=== PATIENT | female | born 1975 ===

== ENCOUNTER 2024-05-09 13:01 | Inpatient (IN) | payer OTHER, SELFPAY ==
[2024-05-09] VITALS (18 sets, daily range): BP systolic 143–183; BP diastolic 86–117; BMI 44.2
--- NOTE | 2024-05-09 08:42 | ED.GENMED ---
History of Present Illness
General
Chief Complaint: Chest Pain
Source: patient
Exam Limitations: none
Time Seen by Provider: 05/09/24 08:30
History of Present Illness
History of Present Illness:
See MDM
Past History
Past History
ED Past Medical History: Asthma, HTN and IDDM
ED Past Surgical History: None
Social History
Tobacco: Non-smoker
Alcohol: None
Phy Exam
Physical Exam
Physical Exam:
See MDM
Scores
Heart Score for Chest Pain Patients
STEMI patient?: No
History: Highly Suspicious
ECG: Nonspecific Repolarization
Age: >45 - <65 years
Risk Factors: 1 or 2 Risk Factors
Troponin: </= Normal Limit
Heart Score for Chest Pain Patients: 5
Heart Score Risk: 20.3% MACE over next 6 weeks
Course
Orders/Labs/Results
Orders:
Orders
05/09/24 08:27
Electrocardiogram (*1) Urgent
Reason for Study: Chest Pain
EKG- Treatment ONCE
Test Result ONCE
05/09/24 08:41
Nitroglycerin Sublingual [Nitrostat (Sublingual)] 0.4 mg SL [id number] PRN
05/09/24 08:42
EKG- Treatment ONCE
CR Chest - 2 Views Urgent
Comment:
Reason For Exam: chest pain
05/09/24 09:15
Complete Blood Count/No Diff Urgent
Troponin I Urgent
Venous Blood Gas Urgent
%Oxygen/Room Air: room
05/09/24 09:46
B-Hydroxybutyrate Urgent
Basic Metabolic Panel Urgent
Lipase Urgent
05/09/24 09:48
Add On- LAB Urgent
Comments:: lab called- spoke with Brandy in CHEM
Tests Added?: troponin
05/09/24 10:18
Urinalysis Reflex To Culture Urgent
Date Specimen was Collected: 05/09/24
Time Specimen was Collected: 10:14
05/09/24 10:40
Potassium Urgent
05/09/24 10:48
Consult Cardiology [CARDIOLOGY CONSULT] Routine
Consulting Provider: Sarkis Villaseñor
Was physician already notified: Yes
Abnormal Lab Results
05/09/24 05/09/24
09:15 09:46
MCV 77.6 L fL
(81.0-99.0)
MCH 25.4 L pg
(27.0-31.0)
MCHC 32.7 L g/dL
(33.0-37.0)
MPV 11.1 H fL
(7.4-10.4)
VBG pO2 165 H mmHg
(30-50)
BUN 18 H mg/dl
(7-17)
Glucose 476 H* mg/dl
(70-99)
B-Hydroxybutyrate 0.54 H mmol/L
(0.02-0.27)
05/09/24 09:15
Vital Signs
Initial and Last Documented VS:
Initial Vital Signs
Pulse Resp
104 20
05/09/24 08:31 05/09/24 08:31
Last Documented Vital Signs
Pulse Resp BP
96 23 143/94
05/09/24 10:15 05/09/24 10:15 05/09/24 10:23
MDM/Problems Addressed
Differential Diagnosis Includes:
HPI and MDM Narrative:
49-year-old female presenting with chest pain since last night. Patient was in bed and noted left-sided chest pain rating down left arm. Patient got worried because symptoms have significantly worsened with any sort of exertion. Patient was given
nitroglycerin by EMS and symptoms have improved somewhat. Patient has a prescription of nitroglycerin herself. When questioned why, patient states she had a cardiac catheterization 4 years ago. She was prescribed the medicine after the
catheterization but did not require a stent. Patient states he has a clotting disorder and is currently on Eliquis. Patient also found to have elevated blood sugar by EMS which is abnormal per patient. She is chronically on steroids due to her
asthma. She is currently on antibiotics to treat strep throat as well.
Given the exertional chest pain and shortness of breath, will obtain troponin discussed case with cardiology. Will obtain chest x-ray. Given compliance with Eliquis, will not pursue PE route
Given the uncontrolled diabetes, will rule out DKA. Will give IV fluids for expected polydipsia
Physical exam
General: Mildly uncomfortable
HEENT: protecting airway
Neck: appears supple
CV: No evidence of cyanosis. Regular rate and rhythm
Resp: No accessory muscle use. Lungs clear
Abd: Non-distended
Extremities: No deformities. No unilateral leg edema or erythema
Neuro: alert
Psych: Normal affect
Skin: Intact
Problems Addressed including Acute and Chronic Conditions affecting care:
1. Exertional chest pain and shortness of breath
Acuity: acute
Prognosis: unstable
Details: Will obtain troponin, EKG and chest x-ray.
2. Hyperglycemia
Acuity: acute
Prognosis: unstable
Details: Will rule out DKA.
3. Dehydration
Acuity: acute
Prognosis: stable
Details: Likely in setting of hyperglycemia causing polyuria. Will give IV fluids
Updates
Troponin negative. Given duration of symptoms, ACS is less likely. Given her ongoing symptoms appear to be improved with nitroglycerin, will admit with cardiology consult. Cardiology made aware. VBG showing no evidence of DKA. Blood work keeps
hemolyzing. This was relayed to hospitalist so that she does not get insulin before potassium
Differential Diagnosis (but not limited to): Acute coronary syndrome, DKA, pneumonia
Testing considered: D-dimer but patient is anticoagulated
Drug therapy (if applicable): OTC meds, please see d/c instruction regarding Rx drugs
Amount and/or Complexity of Data Reviewed
Clinical info obtained from: Patient
External data reviewed: N/A
Labs I independently reviewed (but not limited to): trop normal, hyperglycemia
Radiology: X-ray independently reviewed: Chest x-ray clear
Pulse Ox: not hypoxic
EKG independently reviewed: Sinus rhythm, right axis, no STEMI
Desk Clerk: Sinus rhythm
Critical Care: N/A
Risk of Complication:
Social Determinants of health: Good social support
Discussed with other providers: Hospitalist, cardiology
Escalation of Care includes Admit/Obs: Given exertional dyspnea and uncontrolled diabetes, will admit
Occasional wrong word or 'sound a like' substitutions may have occurred due to the inherent limitations of voice recognition software. Read the chart carefully and recognize, using context, where substitutions have occurred.
*Critical Care Note
Total Time (30-74mins, 75-104mins- exclusive of procedures): Not Applicable
ED Attending Note
-
Portions of this chart may have been created with voice recognition software.� Occasional wrong word or��sound alike� substitutions may have occurred due to the inherent limitations of voice recognition software.
Discharge Plan
Departure
Patient Disposition: Admit
Date of Disposition: 05/09/24
Time of Disposition: 10:52
Admit to: Telemetry
Presentation/result/management discussed w/ accepting MD/DO: Hospitalist
Discharge Problem:
Exertional dyspnea, Hyperglycemia
Prescriptions:
No Action
amoxicillin 250 mg/5 mL suspension for reconstitution
Referrals:
UNKNOWN - PT DOES,NOT KNOW [Family Provider] -
Interventions
Interventions:
*Risk Screen - Suicide Last Done: 05/09/24 08:29
*Neglect/Abuse Screening Last Done: 05/09/24 08:29
ED- Fall Risk Assessment Last Done: 05/09/24 09:22
*ED COVID-19 Vaccine History Last Done: 05/09/24 08:29
ED- Cardiac Assessment Last Done: 05/09/24 09:22
Discharge Date and Time
Print Language: PAKISTANI
[2024-05-09 09:24] LABS: Venous Blood Gas HCO3 24.3 mmol/L (22-27); Venous Blood Gas pCO2 42 mmHg (35-48); Venous Blood Gas pH 7.37 (7.32-7.43); Venous Blood Gas pO2 165 mmHg (30-50)
[2024-05-09 09:26] LABS: Venous Blood Gas O2 Therapy ROOM AIR
[2024-05-09 09:30] LABS: Hemoglobin 12.1 g/dL (12.0-16.0); Mean Corp Hgb Conc. 32.7 g/dL (33.0-37.0); Mean Corpuscular Hgb 25.4 pg (27.0-31.0); Mean Corpuscular Volume 77.6 fL (81.0-99.0); Mean Platelet Volume 11.1 fL (7.4-10.4); Platelet Count 270 10^3/uL (130-400); Red Blood Cell Count 4.77 10^6/uL (4.20-5.40); Red Cell Dist. Width 14.4 % (11.5-14.5); White Blood Cell Count 9.5 10^3/uL (4.8-10.8)
[2024-05-09 10:17] LABS: Troponin I < 0.012 ng/ml
[2024-05-09 10:23] LABS: Blood Urea Nitrogen 18 mg/dl (7-17); Calcium 9.7 mg/dl (8.4-10.2); Carbon Dioxide 25 mmol/L (22-30); Chloride 100 mmol/L (98-107); Glucose 476 mg/dl (70-99); Lipase 87 U/L (23-300); Sodium 135 mmol/L (135-145); eGFR > 60.00
[2024-05-09] MEDS: NITROSTAT (SUBLINGUAL) 0.4 MG SL ×3 (10:23→20:41)
[2024-05-09 10:26] LABS: B-Hydroxybutyrate 0.54 mmol/L (0.02-0.27)
[2024-05-09 10:43] LABS: Urine Albumin Negative (Neg - Trace); Urine Bilirubin Negative (Negative); Urine Character Clear (Clear); Urine Color Yellow; Urine Glucose 3+ (Negative); Urine Ketone Negative (Negative); Urine Leukocyte Negative (Negative); Urine Nitrite Negative (Negative); Urine Occult Blood Trace (Negative); Urine Urobilinogen Negative (Neg - 1+)
--- NOTE | 2024-05-09 11:05 | PHANOTE ---
med rec note- tried to verify patient narc at a [place] pharmacy, patient has med list from s different hospital having Roxicodone 10mg but called pharmacy at [phone] but pharmacy has not records of narc, no pdmp reocrds of narc and no ecw
records
[2024-05-09 11:12] LABS: Potassium 4.3 mmol/L (3.5-5.1)
--- NOTE | 2024-05-09 11:37 | HPS.HSE ---
Family Physician
-
Family Physician: NOT KNOW UNKNOWN - PT DOES
Chief Complaint
-
Chest pain, palpitations
History of Present Illness
49-year-old female here complaining of chest pain since yesterday. Worse on exertion. Characterized by heaviness with associated palpitations and shortness of breath. Radiation down the right arm.
Chest pain improved with nitroglycerin in the emergency room.
Reportedly had a cardiac catheterization 4 years ago at [facility] in [place], did not require stenting. Denies history of stents.
Relocated to this area 1 year ago from [place]. Most of her physicians are located in [place].
Medical History
Past Medical History
Past Medical History: Reports Other
Additional Past Medical History:
Neuromyelitis optica
Atrial fibrillation
Essential hypertension
DM2
History of DVT/PE
COPD
MCKENZIE
Asthma
Peripheral neuropathy
Past Surgical History: Reports Appendectomy and Other
Additional Past Surgical History:
Left oophorectomy/fallopian tube resection
Gastric sleeve -2020
Cholecystostomy tube
Social History
Tobacco: Non-smoker
Alcohol: None
Drug: None
Personal:
Living: With Family
Family History
Family History: Not pertinent
Allergies / Home Medications
Allergies reflects when Allergies were last updated in [facility] [employer] [facility].
Home Medications with original date entered in [employer]
Allergy/Medication List:
Allergies
Allergy/AdvReac Type Severity Reaction Status Date / Time
food Allergy Pharmacy Uncoded 05/09/24 08:29
to Review
plasma Allergy Pharmacy Uncoded 05/09/24 08:29
to Review
Home Medications
albuterol sulfate 2.5 mg/3 mL (0.083 %) solution for nebulization 2.5 mg inhalation R Q4HPRN PRN sob 05/09/24
apixaban 5 mg tablet (Eliquis) 5 mg PO BID 05/09/24
baclofen 10 mg tablet 10 mg PO BID 05/09/24
budesonide-formoterol HFA 160 mcg-4.5 mcg/actuation aerosol inhaler (Symbicort) 2 inh inhalation R BID 05/09/24
cholecalciferol (vitamin D3) 25 mcg (1,000 unit) tablet (Vitamin D3) 25 mcg PO DAILY 05/09/24
diphenhydramine HCl 50 mg capsule 50 mg PO HSPRN PRN sleep 05/09/24
ferrous sulfate 325 mg (65 mg iron) tablet 325 mg PO DAILY 05/09/24
gabapentin 300 mg capsule 900 mg PO TID 05/09/24
hydrochlorothiazide 12.5 mg tablet 12.5 mg PO DAILY 05/09/24
insulin glargine 100 unit/mL subcutaneous solution 30 unit SC HS 05/09/24
insulin lispro 100 unit/mL subcutaneous pen 8 sliding scale dose SC AC 05/09/24
ipratropium bromide 0.02 % solution for inhalation 0.5 mg inhalation R BID 05/09/24
ondansetron 8 mg disintegrating tablet 8 mg PO [id number] PRN nausea 05/09/24
pantoprazole 40 mg tablet,delayed release (Protonix) 40 mg PO DAILY 05/09/24
peg 400-propylene glycol (PF) 0.4 %-0.3 % eye drops in a dropperette (Systane (PF)) 1 drp BOTH EYES BID 05/09/24
prednisone 20 mg tablet 40 mg PO DAILY 05/09/24
satralizumab-mwge 120 mg/mL subcutaneous syringe (Enspryng) 120 mg SC Q4W 05/09/24
Review of Systems
-
History Source: Patient
A 12 point ROS was completed and negative except as noted: Yes
Physical Exam
Vital Signs
Vital Signs
Pulse Resp BP
96 23 143/94
05/09/24 10:15 05/09/24 10:15 05/09/24 10:23
Physical Exam
General: Well Developed, Well Nourished, No Apparent Distress, Comfortable and Morbidly Obese
HEENT: NormoCephalic, Anicteric and Moist mucous membranes
Respiratory: Clear
Cardiac: S1/S2 and Regular Rhythm
GI: Soft, Non Tender and Non Distended
Genito-urinary: Deferred by me
Musculoskeletal: No Clubbing, No Cyanosis and No Edema
Skin: Warm and Dry
Neuro: AO x 3
Hematologic/Lymphatic: No Lymphadenopathy
Psych: Calm
Laboratory Results
-
05/09/24 09:15
05/09/24 10:49
Laboratory Results
Total Bilirubin Cancelled 05/09/24 09:46
AST Cancelled 05/09/24 09:46
ALT Cancelled 05/09/24 09:46
Alkaline Phosphatase Cancelled 05/09/24 09:46
Troponin I < 0.012 ng/ml 05/09/24 09:15
Troponin I Cancelled 05/09/24 09:15
Lipase 87 U/L (23-300) 05/09/24 09:46
Impression/Plan
-
Chest pain -rule out ACS given risk factors. Admit to IVU, consult cardiology. Troponin negative so far. No significant EKG changes.
DM2 with hyperglycemia -no evidence of DKA. She admits that her last A1c was 11%. Steroid-induced hyperglycemia contributing. Resume Lantus, mealtime insulin. Normally on NovoLog 15 units AC, Lantus 30 units at bedtime at home.
Neuromyelitis optica -on monthly Enspryng injections subQ, next dose due 05/15/24. Her neurologist is located in [place].
She is on a slow prednisone taper, was on 20 mg daily for the past month. She requests to go down to 10 mg daily starting today. Prednisone is for both her asthma as well as NMO.
Atrial fibrillation -continue Eliquis.
Moderate persistent asthma/COPD without exacerbation -continue inhalers.
Essential hypertension
History of VTE -2016. IVC filter placed and still intact. Continue Eliquis.
MCKENZIE -resume CPAP at bedtime.
Morbid obesity due to excess calories
Full code
[2024-05-09 11:42] LABS: Urine Yeast Moderate (Negative)
[2024-05-09] MEDS: NOVOLIN R 11 UNITS IV (11:56)
[2024-05-09] MEDS: 0.45%NACL 1000 IV (11:58)
--- NOTE | 2024-05-09 12:20 | EDRN ---
Pharmacy TT to send AVNI pen insulin for administration
[2024-05-09 13:15] LABS: Glucose - Point of Care 234 mg/dl (70-99)
--- NOTE | 2024-05-09 13:16 | CON.CAR ---
Addendum entered and electronically signed by Sarkis Villaseñor MD 05/09/24 14:46:
49-year-old woman with complex past medical history, with neuromyelitis optica, diabetes, hypertension, hyperlipoidemia, PAF, pulmonary embolism with recent filter, gastric sleeve, obesity, obstructive sleep apnea, and asthma she has episodes of
tachycardia with sharp chest pain several times a week lasting up to an hour but last night had a prolonged episode and presented for evaluation. Currently feels better, had pain radiating to the left arm. 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 She has periods where she does not consistently take her medications. PMH: As above
PSH: Gastric sleeve, appendectomy, salpingo-oophorectomy
Allergies: None to medications
Outpatient meds: Reviewed SH: Non-smoker no alcohol
ROS negative except as above
160/117, 140s over 90s, pulse 100 respiratory rate 14, weight is 112.2 kg saturations of 100% on room air, head neck exam unremarkable lungs are clear, soft systolic murmur at base to apex JVD carotids okay abdomen obese extremities without
significant edema distal pulses palpable neuro grossly nonfocal
Hemoglobin 12.1, MCV 77.6, 7.36.65, 42, 24 (venous gas), BUN/creatinine: 18 and 0.6, troponin undetectable, proBNP pending, glucose is 476
EKG normal sinus rhythm, poor R wave progression, axis indeterminate
Assessment
Chest pain and tachycardia, suspected paroxysmal atrial fibrillation
Strep throat, abx course not yet completed
Fall 05/07/24
DM2, poorly controlled with hyperglycemia
HTN, poorly controlled
Neuromyelitis optica
reportedly with prolonged hospitalization for 4.5 years at [facility] at time of diagnosis, followed by 1 year in rehab
Peripheral neuropathy
HLD
PAF
PE s/p IVC filter
Chronic OAC with eliquis
Asthma
MCKENZIE
Obesity
History of gastric sleeve
History of appendectomy
History of L salpingo-oophorectomy
Cholecystostomy tube with plans for eventual cholecystectomy
Plan:
She presents with chest pain usually in the setting of tachycardia and what she suspects is atrial fibrillation. She is not on a beta-isabel. She is anticoagulated. She reports she has had a cardiac catheterization in the past, has not had an
echo for some period of time. She is not always consistent and taking medications and hemoglobin A1c has been very elevated.
Her negative troponin makes ACS unlikely. She has no acute EKG changes. Currently she is in sinus rhythm.
Will observe on telemetry. Check echo and trend troponin. Continue Eliquis for now.
Likely will begin beta-isabel therapy.
Based on clinical course we can decide on the need for an ischemic evaluation.
Original Note:
Consultation
Consultation Request
Date/Time Consultation Performed: 05/09/24
Requesting Provider: Dr. Carroll
Performing Provider: Belen Norman PA-C for Dr. HEENA Villaseñor
Reason for Consultation: CP, HTN
Medical History
-
Chief Complaint: CP
History of Present Illness:
Patient is a 49 yo F with all prior medical care through [facility] in [place], moved to this area ~ 1 year ago and still attempting to establish care. She reports a history of neuromyelitis optica with prolonged hospitalization of 4.5 years at [facility] at
time of diagnosis followed by 1 year in rehab. Previously on rituxan however transitioned to enspryng. She also has type 2 DM, HTN, HLD, PAF, PE s/p IVC filter, asthma, MCKENZIE, obesity, history of gastric sleeve. She reports she has gone to [place] [facility] in the past as is very close to her home, however cannot follow with cardiology there due to her insurance. She decided to come here today as she ideally would like to establish care here. She states that on 04/21 she was having L arm pain.
Went to [facility] and diagnosed with tendonitis. She reports then on 05/01 she was evaluated for CP and found to have strep throat. She tells me she fell two days ago, which is not uncommon in setting of her chronic ambulatory dysfunction as
she was temporarily paralyzed during her hospitalization for neuromyelitis optica. She reports she continues with dry cough, covid negative. Last evening around 9PM she was SOB with associated heart pounding and chest pain. She reports it felt
similar to how she felt prior to being diagnosed with PE. She took several SL nitro without significant improvement. She then noted the pain through to her back and down her R arm and called 911. She reports she previously had a cath ~6 years ago
prior to her gastric sleeve surgery which did not require intervention. She tells me she does have significant family history of CAD. On arrival blood sugar was 526. She states she does not always take her insulin, last hgbA1c 11%. She has been
trying some holistic methods including apple cider vinegar and garlic clove, and 'lots of herbs.' She also reports she sometimes does not take her eliquis, but then was told that 'is not good.' Trop negative x1.
PMH:
Neuromyelitis optica
reportedly with prolonged hospitalization for 4.5 years at [facility] at time of diagnosis, followed by 1 year in rehab
DM2
HTN
HLD
PAF
PE s/p IVC filter
Chronic OAC with eliquis
Asthma
MCKENZIE
Obesity
History of gastric sleeve
History of appendectomy
History of salpingo-oophorectomy
Past Medical History
Past Medical History: Other (in HPI)
Social History
Tobacco: Former Smoker (brief ~2 months, remote)
Alcohol: None
Personal:
Living: With Family
Employment: Disabled
Family History
Family History: CAD
Allergies / Home Medications
Allergy/AdvReac Type Severity Reaction Status Date / Time
food Allergy Pharmacy Uncoded 05/09/24 08:29
to Review
plasma Allergy Pharmacy Uncoded 05/09/24 08:29
to Review
�Medication �Instructions �Recorded �Confirmed �Type
albuterol sulfate 2.5 mg/3 mL 2.5 mg inhalation R Q4HPRN PRN sob 05/09/24 05/09/24 History
(0.083 %) solution for nebulization
apixaban 5 mg tablet (Eliquis) 5 mg PO BID 05/09/24 05/09/24 History
baclofen 10 mg tablet 10 mg PO BID 05/09/24 05/09/24 History
budesonide-formoterol HFA 160 2 inh inhalation R BID 05/09/24 05/09/24 History
mcg-4.5 mcg/actuation aerosol
inhaler (Symbicort)
cholecalciferol (vitamin D3) 25 25 mcg PO DAILY 05/09/24 05/09/24 History
mcg (1,000 unit) tablet (Vitamin
D3)
diphenhydramine HCl 50 mg capsule 50 mg PO HSPRN PRN sleep 05/09/24 05/09/24 History
ferrous sulfate 325 mg (65 mg 325 mg PO DAILY 05/09/24 05/09/24 History
iron) tablet
gabapentin 300 mg capsule 900 mg PO TID 05/09/24 05/09/24 History
hydrochlorothiazide 12.5 mg tablet 12.5 mg PO DAILY 05/09/24 05/09/24 History
insulin glargine 100 unit/mL 30 unit SC HS 05/09/24 05/09/24 History
subcutaneous solution
insulin lispro 100 unit/mL 8 sliding scale dose SC AC 05/09/24 05/09/24 History
subcutaneous pen
ipratropium bromide 0.02 % 0.5 mg inhalation R BID 05/09/24 05/09/24 History
solution for inhalation
ondansetron 8 mg disintegrating 8 mg PO [id number] PRN nausea 05/09/24 05/09/24 History
tablet
pantoprazole 40 mg tablet,delayed 40 mg PO DAILY 05/09/24 05/09/24 History
release (Protonix)
peg 400-propylene glycol (PF) 0.4 1 drp BOTH EYES BID 05/09/24 05/09/24 History
%-0.3 % eye drops in a dropperette
(Systane (PF))
prednisone 20 mg tablet 40 mg PO DAILY 05/09/24 05/09/24 History
satralizumab-mwge 120 mg/mL 120 mg SC Q4W 05/09/24 05/09/24 History
subcutaneous syringe (Enspryng)
Review of Systems
-
History Source: Patient
All other systems: Negative unless noted
Physical Exam
Vital Signs
Pulse Resp BP
100 14 160/117
05/09/24 12:30 05/09/24 12:30 05/09/24 11:58
Lab Results
05/09/24 09:15
05/09/24 10:49
Troponin I < 0.012 ng/ml 05/09/24 09:15
Troponin I Cancelled 05/09/24 09:15
Physical Exam
General: No Apparent Distress, Comfortable and Other (obese)
HEENT: Normocephalic, Anicteric and Moist Mucous Membranes
Respiratory: Clear and Non Labored Respirations
Cardiac: S1/S2 and Regular Rhythm
GI: Soft, Non Tender, Non Distended and Normal Bowel Sounds
Musculoskeletal: No Clubbing, No Cyanosis and No Edema
Skin: Warm and Dry
Neuro: AO x 3
Impression / Plan
-
Primary Application Analyst: [facility]
Assessment:
Presentation with CP
Negative troponin x1
Strep throat, abx course not yet completed
Fall 05/07/24
DM2, poorly controlled with hyperglycemia
HTN, poorly controlled
Neuromyelitis optica
reportedly with prolonged hospitalization for 4.5 years at [facility] at time of diagnosis, followed by 1 year in rehab
Peripheral neuropathy
HLD
PAF
PE s/p IVC filter
Chronic OAC with eliquis
Asthma
MCKENZIE
Obesity
History of gastric sleeve
History of appendectomy
History of L salpingo-oophorectomy
Cholecystostomy tube with plans for eventual cholecystectomy
Plan:
-Patient presents with chest discomfort with some typical and some atypical features. has risk factors with poorly controlled diabetes, HTN, HLD, obesity.
-s/p 324mg asa in ER. continue 81mg daily
-initial trop negative. repeat now
-EKG SR without acute ischemic changes
-check echo
-hyperglycemic on arrival with blood sugar 526. continue treatment per primary service. reports some compliance issues with insulin as OP. we discussed last hgbA1c of 11%, repeat pending 05/10. would recommend diabetic POSITION CLASSIFIER/education consult.
-BPs elevated in ER. on HCTZ as OP. unclear if good candidate for BB given COPD/asthma. consider addition of norvasc.
-check proBNP. CXR without evidence of acute process
-may require ischemic evaluation at some point
-for now remains on eliquis, although reports intermittent compliance as OP. consider chest CTA to r/o PE. could consider transition to IV heparin if second trop higher
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
Data Reviewed
-
EKG: Tracing Personally Visualized and interpreted
Radiology: Report Reviewed by me
Labs: Labs Reviewed by me
Old Records: Reviewed
[2024-05-09] MEDS: HUMULIN N KWIKPEN 15 UNITS SC (13:58)
[2024-05-09 14:32] LABS: Troponin I < 0.012 ng/ml
[2024-05-09 14:36] LABS: NT-proBNP 30.2 pg/ml
[2024-05-09 14:38] LABS: HDL Cholesterol 52 mg/dl; LDL Cholesterol, Calculated 175 mg/dl; Total Cholesterol 247 mg/dl (50-199); Triglyceride 101 mg/dl (10-149); Very Low Density Lipoprotein 20 mg/dl (0-30)
[2024-05-09 15:00] LABS: TSH Reflex To Free T4 0.62 uIU/ml (0.47-4.68)
[2024-05-09 15:42] LABS: Glucose - Point of Care 347 mg/dl (70-99)
--- NOTE | 2024-05-09 17:01 | CM ---
CM following for DC planning needs.
Met w/ patient + spouse at bedside to complete initial assessment.
Pt. resides w/ spouse in a private, [address] apartment. She is indep. w/ use of a RW at baseline.
She has recently moved here from [place] and has yet to be established in this area. She still has [employer] insurance from this area, has yet to change to local insurance.
Pt. has CPAP in the home, which she uses @ night.
Pt. reports that she is trying to get home aides thru insurance as she needs assist w/ housekeeping due to vision.
Pt. has Rx plan and uses [facility] in [place] on [address]
Will follow for DC planning needs.
[2024-05-09] MEDS: DELTASONE 10 MG PO (17:32)
[2024-05-09] MEDS: NEURONTIN PO (17:32)
[2024-05-09 17:54] LABS: Glucose - Point of Care 259 mg/dl (70-99)
[2024-05-09] MEDS: NOVOLOG FLEXPEN-LOW RESISTANCE 3 UNITS SC (18:02)
--- NOTE | 2024-05-09 19:15 | PTCARENOTE ---
Pt received at 1645 from the ED. Pt denies any chest pain or sob. Pt ambulated without difficulty from the stretcher to the bed. Iv fluid infusing as ordered.
[2024-05-09] MEDS: ATROVENT NEBULES 0.5 MG INH (19:25)
[2024-05-09] MEDS: VENTOLIN NEBULES 2.5 MG INH (19:26)
--- NOTE | 2024-05-09 19:45 | PTCARENOTE ---
Received patient at change of shift. Patient awake, alert, and oriented sitting in bed. BP 163/90, NSR/TSR 90s-100s, 99% on room air. 0.45% NaCl running through right wrist @100 mls/hr. No c/o chest pain at this time. Discussed care plan. Patient
verbalized understanding. Call hillman within reach.
[2024-05-09] MEDS: AUGMENTIN 875 MG/125 MG 1 TABLET PO (20:25)
[2024-05-09] MEDS: ELIQUIS 5 MG PO (20:25)
[2024-05-09] MEDS: LIORESAL 10 MG PO (20:25)
[2024-05-09] MEDS: REFRESH EYE DROPS (PF) 1 DROPS BOTH EYES (20:28)
[2024-05-09 20:32] LABS: Troponin I < 0.012 ng/ml
--- NOTE | 2024-05-09 21:07 | W.PN.UPDATE ---
Update Note
Progress Note Update
Reported by the nursing staff that the patient has a chest pain and received Nitro x2 and that helped with the chest pain but not helping with Left side near breast. VSS BP 150/86, hr 100s, afebrile, SPO2 98 RA, R 18.
On assessment patient is alert and oriented, NAD, on RA. Mentioned that her chest pain is improved with Nitro gradually, but she still with some pain near LT breast/ under arm. denied SOB. No wheezing or crackles noted on exam. under LT arm/ near
breast slightly tender to touch and worse with movement, No swelling noted under LT arm.
-Patient had chest x-ray today result with no parenchymal opacification or vascular congestion. Mild elevation of the right hemidiaphragm is noted. The cardiomediastinal silhouettes are within the limits of normal, no pneumothorax, pleural effusion
or mediastinal shift.
- Repeated troponin is normal. EKG with no changes from earlier/ slightly tachycardia hr in 100s.
-Will give a small dose of morphine.
[2024-05-09] MEDS: NEURONTIN 900 MG PO (21:27)
[2024-05-09] MEDS: BENADRYL 50 MG PO (21:27)
[2024-05-09] MEDS: MORPHINE SULFATE 0.5 MG IV (21:27)
--- NOTE | 2024-05-09 21:30 | PTCARENOTE ---
During evening meds, patient began c/o a sharp chest pain. RN completed an EKG, and administered Nitro-- see MAR. Chest pain began to subside, but patient began c/o pain near left armpit/breast. Reached out to Timi Reyez NP, who came and
assessed patient. 0.5 mg Morphine prescribed and given-- see MAR. Discussed with patient about change in pain and to notify the nurse with any additional pain. Patient verbalized understanding. Call hillman within reach.
[2024-05-09 21:56] LABS: Glucose - Point of Care 358 mg/dl (70-99)
[2024-05-09] MEDS: LANTUS 0.3 UNITS SC (22:33)
--- NOTE | 2024-05-09 22:58 | PTCARENOTE ---
Patient no longer having chest pain. Agreed to call RN with further pain. Call hillman within reach.
[2024-05-10] VITALS (9 sets, daily range): BP systolic 128–144; BP diastolic 70–88; PULSE 81; BMI 44.0
--- NOTE | 2024-05-10 | RESPNOTE ---
Attempted to place PT omn CPAP as ordered for HS use and the PT stated that she could not breath with it on and wanted it off. She states that her is going to bring her CPAP from home in tomorrow and she will wear that. Machine remains in
the romm currently bc there is an active order and will be removed upon arrival of her home machine.
[2024-05-10] MEDS: PULMICORT INH (01:34)
[2024-05-10 05:09] LABS: ALT (SGPT) 19 U/L (0-35); AST (SGOT) 22 U/L (14-36); Albumin 3.8 g/dl (3.5-5.0); Alkaline Phosphatase 83 U/L (38-126); Blood Urea Nitrogen 14 mg/dl (7-17); Calcium 9.6 mg/dl (8.4-10.2); Carbon Dioxide 25 mmol/L (22-30); Chloride 102 mmol/L (98-107); Estimated Creatinine Clearance > 125 ml/min; Glucose 359 mg/dl (70-99); Potassium 4.2 mmol/L (3.5-5.1); Sodium 137 mmol/L (135-145); Total Bilirubin 0.2 mg/dl (0.2-1.3); Total Protein 5.8 g/dl (6.3-8.2); eGFR > 60.00
[2024-05-10] MEDS: PULMICORT 0.5 MG INH ×2 (08:13→19:47)
[2024-05-10] MEDS: ATROVENT NEBULES 0.5 MG INH ×2 (08:13→19:47)
[2024-05-10 08:35] LABS: Glycohemoglobin (HgbA1c) 11.6 % (4.0-5.6)
[2024-05-10 08:49] LABS: Glucose - Point of Care 304 mg/dl (70-99)
--- NOTE | 2024-05-10 08:59 | W.PN.CARDCBS ---
Today's Communication / Plan
-
Add metoprolol, watch for bronchospasm
Consider nuclear stress testing, either as inpatient or outpatient
Continue to monitor
Add statin
Impression / Plan
-
Primary Borderer: [facility]
Assessment:
Presentation with CP
Negative troponin x1
Strep throat, abx course not yet completed
Fall 05/07/24
DM2, poorly controlled with hyperglycemia
HTN, poorly controlled
Neuromyelitis optica
reportedly with prolonged hospitalization for 4.5 years at [facility] at time of diagnosis, followed by 1 year in rehab
Peripheral neuropathy
HLD
PAF
PE s/p IVC filter
Chronic OAC with eliquis
Asthma
MCKENZIE
Obesity
History of gastric sleeve
History of appendectomy
History of L salpingo-oophorectomy
Cholecystostomy tube with plans for eventual cholecystectomy
Echocardiogram 05/09/2024: EF 66%, mild LVH, normal RV, normal atria, no significant valve abnormality
Plan:
Her troponin remains undetectable, and she has no acute EKG changes. Her echocardiogram is satisfactory.
.
However she does have a resting sinus tachycardia with symptoms
.
She is anticoagulated, making pulmonary embolus relatively unlikely.
.
We will prescribe a beta-isabel to see if this alleviates her symptoms. Watch for bronchospasm.
.
Progress Note - Borderer
Subjective
Date of Service: May 10, 2024:
49-year-old woman with complex past medical history, with neuromyelitis optica, diabetes, hypertension, hyperlipoidemia, PAF, pulmonary embolism with recent filter, gastric sleeve, obesity, obstructive sleep apnea, and asthma she has episodes of
tachycardia with sharp chest pain several times a week lasting up to an hour but last night had a prolonged episode and presented for evaluation. 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 She has periods where she does not consistently take her medications.
Last night, she had a sense of tachycardia, with chest pain. Received morphine.
Her doctor for neuromyelitis optica is Dr. Sole Bauman of [facility]
PMH: As above
PSH: Gastric sleeve, appendectomy, salpingo-oophorectomy
Allergies: None to medications
Outpatient meds: Reviewed
SH: Non-smoker no alcohol
ROS negative except as above
Current meds: Apixaban 5 mg twice daily, baclofen, vitamin D3, iron, Neurontin 900 3 times daily, hydrochlorothiazide 12.5 daily, Atrovent twice daily, pantoprazole, prednisone 10 mg a day, insulin, aspirin 81 mg a day, Pulmicort, Lantus
Glucose 359, hemoglobin A1c 11.6, BUN and creatinine 14 and 0.6, potassium 4.2, troponin remains undetectable, total cholesterol is 247, she is not on a statin
EKG with pain last night: No acute changes
Objective
Labs:
05/09/24 09:15
05/10/24 03:40
Labs
Hgb 12.1 g/dL (12.0-16.0) 05/09/24 09:15
Hct 37.0 % (37.0-47.0) 05/09/24 09:15
Plt Count 270 10^3/uL (130-400) 05/09/24 09:15
Sodium 137 mmol/L (135-145) 05/10/24 03:40
Potassium 4.2 mmol/L (3.5-5.1) 05/10/24 03:40
BUN 14 mg/dl (7-17) 05/10/24 03:40
Creatinine 0.6 mg/dL (0.6-1.0) 05/10/24 03:40
Glucose 359 mg/dl (70-99) H 05/10/24 03:40
Troponins
05/09/24 05/09/24 05/09/24
09:15 09:15 14:00
Troponin I Cancelled < 0.012 < 0.012
05/09/24 05/09/24 05/09/24
16:39 20:02 22:39
Troponin I Cancelled < 0.012 Cancelled
Vital Signs and I&O:
Vital Signs
Temp Pulse Resp BP Pulse Ox
36.7 C 79 16 130/88 96
05/10/24 08:07 05/10/24 08:19 05/10/24 08:19 05/10/24 03:42 05/10/24 08:19
Vital Signs
Temp Pulse Resp BP Pulse Ox
36.7 C 79 16 130/88 96
05/10/24 08:07 05/10/24 08:19 05/10/24 08:19 05/10/24 03:42 05/10/24 08:19
Physical Exam
Physical Exam
Awaken from sleep, states she felt poorly last night, head neck exam unremarkable, lungs are clear, cardiac relatively tachycardic, no murmurs, abdomen obese, extremities without much edema, neuro nonfocal
[2024-05-10] MEDS: NOVOLIN N vial 0.1 UNITS SC (09:53)
[2024-05-10] MEDS: NOVOLOG FLEXPEN-LOW RESISTANCE 4 UNITS SC ×2 (09:54→17:45)
[2024-05-10] MEDS: NOVOLOG FLEXPEN 15 UNITS SC ×3 (09:54→17:44)
[2024-05-10] MEDS: VITAMIN D3 (cholecalciferol) 25 MCG PO (10:02)
[2024-05-10] MEDS: LIORESAL 10 MG PO ×2 (10:02→19:43)
[2024-05-10] MEDS: DELTASONE 10 MG PO (10:02)
[2024-05-10] MEDS: ELIQUIS 5 MG PO ×2 (10:02→19:43)
[2024-05-10] MEDS: ASPIR LOW (ENTERIC COATED) 81 MG PO (10:02)
[2024-05-10] MEDS: FEOSOL 325 MG PO (10:02)
[2024-05-10] MEDS: PROTONIX 40 MG PO (10:02)
[2024-05-10] MEDS: AUGMENTIN 875 MG/125 MG 1 TABLET PO ×2 (10:02→19:43)
[2024-05-10] MEDS: NEURONTIN PO ×2 (10:03→17:01)
[2024-05-10] MEDS: ORETIC 12.5 MG PO (10:03)
--- NOTE | 2024-05-10 10:37 | W.PN.HOSP.TC ---
Today's Communication/Plan
-
Adjust insulin
Continue metoprolol
Assessment / Plan
Assessment / Plan
Gen-awake, oriented, NAD, morbid obesity
HEENT-NC, AT, anicteric, clear oral mm
Neck-supple
CV-reg, no M, +S1/S2
Lungs-clear B/L
Abd-soft, NT, ND
Ext-no edema
Musculoskeletal-no cyanosis, clubbing
Skin-warm and dry
Neuro-grossly non-focal
Psych-calm, cooperative
Chest pain -unclear if anginal equivalent versus other etiology. Troponins negative so far. Cardiology following. Metoprolol initiated. Clinically doubt pulmonary embolism. LVEF 66% on echocardiogram without regional wall motion abnormalities,
normal RV, no significant valvular disease. Admission chest x-ray normal. Cardiology deciding on ischemic workup.
DM2 with hyperglycemia -no evidence of DKA. Hemoglobin A1c 11.6%. Glucose 359 this morning. Steroid-induced hyperglycemia contributing. Increase Lantus to 40 units at bedtime, resume mealtime NovoLog 15 units AC. Given a dose of NPH this
morning.
Neuromyelitis optica -on monthly Enspryng injections subQ, next dose due 05/15/24. Her neurologist is located in [place].
She is on a slow prednisone taper, was on 20 mg daily for the past month. She requests to go down to 10 mg daily starting today. Prednisone is for both her asthma as well as NMO.
Strep pharyngitis -subacute. Continue course of amoxicillin.
Paroxysmal atrial fibrillation -continue Eliquis.
Moderate persistent asthma/COPD without exacerbation -continue inhalers.
Essential hypertension -stable.
History of VTE -2016. IVC filter placed and still intact. Continue Eliquis.
MCKENZIE -resume CPAP at bedtime.
Morbid obesity due to excess calories
Full code
Anticipated Discharge: 24 - 48 hours
Subjective/Interval History
-
Date of Service: May 10, 2024
Patient seen and examined. Had chest pain last night, currently denies any symptoms. Fatigued due to insomnia.
Objective Data
-
Labs:
Laboratory Results
05/10/24
03:40
Sodium 137
Potassium 4.2
Chloride 102
Carbon Dioxide 25
BUN 14
Creatinine 0.6
Glucose 359 H
Calcium 9.6
Total Bilirubin 0.2
AST 22
ALT 19
Alkaline Phosphatase 83
Vital Signs:
Vital Signs
Temp Pulse Resp BP Pulse Ox
98.1 F 79 16 130/88 96
05/10/24 08:07 05/10/24 08:19 05/10/24 08:19 05/10/24 03:42 05/10/24 08:19
Review of Systems
-
History Source: Patient
All other systems: Reviewed and negative
[2024-05-10] MEDS: REFRESH EYE DROPS (PF) 1 DROPS BOTH EYES ×2 (11:51→20:14)
[2024-05-10] MEDS: LOPRESSOR 25 MG PO ×3 (11:52→22:59)
[2024-05-10 14:13] LABS: Glucose - Point of Care 211 mg/dl (70-99)
[2024-05-10] MEDS: NOVOLOG FLEXPEN-LOW RESISTANCE 2 UNITS SC (14:34)
[2024-05-10 17:37] LABS: Glucose - Point of Care 338 mg/dl (70-99)
[2024-05-10] MEDS: CRESTOR 10 MG PO (17:46)
--- NOTE | 2024-05-10 20:24 | PTCARENOTE ---
Received patient at change of shift. Patient drowsy in bed, but awoke to verbal stimuli-- oriented. BP 143/75, NSR 80s, 98% on room air. Patient asked RN to warm up [employer] that significant other brought in. Nurse educated patient on diabetic,
sodium, and cholesterol diet. Patient disregarded education and still requested the food to be warmed up as her 'grilled cheese was like plastic.' Patient also requested a neil sakshi-- RN offered a diet neil sakshi, and the patient refused. Patient
denies any chest pain and states she 'feels so much better.' Discussed care plan for the evening. Patient verbalized understanding. Call interiano within reach.
[2024-05-10 22:36] LABS: Glucose - Point of Care 426 mg/dl (70-99)
[2024-05-10] MEDS: NEURONTIN 900 MG PO (23:00)
[2024-05-10] MEDS: LANTUS 0.4 UNITS SC (23:04)
[2024-05-10] MEDS: BENADRYL 50 MG PO (23:08)
[2024-05-10 23:18] LABS: Glucose 443 mg/dl (70-99)
[2024-05-11] VITALS (8 sets, daily range): BP systolic 116–152; BP diastolic 62–86
--- NOTE | 2024-05-11 01:01 | PTCARENOTE ---
RN completed AccuCheck before bed.It resulted in 426 which prompted a venous blood glucose, which came back at 443. She was due for her HS 40 units of Lantus then, which is a new dose for her. RN waited to see how she would react with the two hour
post check. She came back high (404) which again prompted another blood venous glucose. It resulted in 386. Reached out to Candi Greco NP, who ordered 10 units Novolog-- see SEP.
[2024-05-11] MEDS: NOVOLOG FLEXPEN 10 UNITS SC (01:08)
[2024-05-11 01:22] LABS: Glucose - Point of Care 404 mg/dl (70-99)
[2024-05-11 01:55] LABS: Glucose 386 mg/dl (70-99)
[2024-05-11 03:13] LABS: Glucose - Point of Care 283 mg/dl (70-99)
[2024-05-11] MEDS: LOPRESSOR 25 MG PO ×2 (07:26→13:01)
[2024-05-11] MEDS: PULMICORT 0.5 MG INH (07:49)
[2024-05-11] MEDS: ATROVENT NEBULES 0.5 MG INH (07:49)
[2024-05-11 07:53] LABS: Glucose - Point of Care 135 mg/dl (70-99)
[2024-05-11] MEDS: ASPIR LOW (ENTERIC COATED) 81 MG PO (08:52)
[2024-05-11] MEDS: ORETIC 12.5 MG PO (08:52)
[2024-05-11] MEDS: AUGMENTIN 875 MG/125 MG 1 TABLET PO ×2 (08:52→20:08)
[2024-05-11] MEDS: PROTONIX 40 MG PO (08:52)
[2024-05-11] MEDS: NEURONTIN 900 MG PO ×2 (08:52→22:10)
[2024-05-11] MEDS: LIORESAL 10 MG PO ×2 (08:52→22:10)
[2024-05-11] MEDS: FEOSOL 325 MG PO (08:53)
[2024-05-11] MEDS: REFRESH EYE DROPS (PF) 1 DROPS BOTH EYES ×2 (08:53→20:08)
[2024-05-11] MEDS: DELTASONE 10 MG PO (08:53)
[2024-05-11] MEDS: ELIQUIS 5 MG PO ×2 (08:53→20:08)
[2024-05-11] MEDS: VITAMIN D3 (cholecalciferol) 25 MCG PO (08:53)
--- NOTE | 2024-05-11 08:56 | W.PN.HOSP.TC ---
Today's Communication/Plan
-
Adjust insulin
Assessment / Plan
Assessment / Plan
Gen-awake, oriented, NAD, morbid obesity
HEENT-NC, AT, anicteric, clear oral mm
Neck-supple
CV-reg, no M, +S1/S2
Lungs-clear B/L
Abd-soft, NT, ND
Ext-no edema
Musculoskeletal-no cyanosis, clubbing
Skin-warm and dry
Neuro-grossly non-focal
Psych-calm, cooperative
Chest pain -unclear if anginal equivalent versus other etiology. Troponins negative so far. Cardiology following. Metoprolol initiated. Clinically doubt pulmonary embolism. LVEF 66% on echocardiogram without regional wall motion abnormalities,
normal RV, no significant valvular disease. Admission chest x-ray normal. Cardiology recommending outpatient evaluation.
DM2 with hyperglycemia -no evidence of DKA. Hemoglobin A1c 11.6%. Glucose 135 this morning. Steroid-induced hyperglycemia contributing. Continue Lantus 40 units at bedtime, increase NovoLog to 18 units AC. Patient asking for regular diet but I
explained to her that a regular diet will worsen her diabetes control. Recommend minimizing meat intake, focusing more on fruits and vegetables and high-fiber diet.
Neuromyelitis optica -on monthly Enspryng injections subQ, next dose due 05/15/24. Her neurologist is located in [place].
She is on a slow prednisone taper, was on 20 mg daily for the past month. She requests to go down to 10 mg daily starting today. Prednisone is for both her asthma as well as NMO.
Strep pharyngitis -subacute. Continue course of amoxicillin.
Paroxysmal atrial fibrillation -continue Eliquis.
Moderate persistent asthma/COPD without exacerbation -continue inhalers.
Essential hypertension -stable.
History of VTE -2016. IVC filter placed and still intact. Continue Eliquis.
MCKENZIE -resume CPAP at bedtime.
Morbid obesity due to excess calories
Full code
Dispo -stable for discharge but patient requesting to go home tomorrow morning as her will not be home today to take care of her. Her vision is impaired and she is afraid of being alone.
Anticipated Discharge: Within 24 hours
Subjective/Interval History
-
Date of Service: May 11, 2024
Patient seen and examined. Mild exertional chest pain. Currently denies symptoms.
Objective Data
-
Labs:
Laboratory Results
05/10/24 05/11/24
23:02 01:37 EST
Glucose 443 H 386 H
Vital Signs:
Vital Signs
Temp Pulse Resp BP Pulse Ox
97.8 F 78 18 121/75 99
05/11/24 07:27 05/11/24 07:54 05/11/24 07:54 05/11/24 07:27 05/11/24 07:54
Review of Systems
-
History Source: Patient
All other systems: Reviewed and negative
[2024-05-11] MEDS: NOVOLOG FLEXPEN 18 UNITS SC ×3 (09:02→17:42)
[2024-05-11] MEDS: NOVOLOG FLEXPEN-LOW RESISTANCE SC (09:15)
[2024-05-11] MEDS: NOVOLOG FLEXPEN SC (09:15)
--- NOTE | 2024-05-11 12:30 | W.PN.CARDCBS ---
Today's Communication / Plan
-
Outpatient sestamibi study and monitor
We can arrange for cardiac follow-up
Impression / Plan
-
Primary Dye Maker: [facility]
Assessment:
Presentation with CP
Negative troponin x1
Strep throat, abx course not yet completed
Fall 05/07/24
DM2, poorly controlled with hyperglycemia
HTN, poorly controlled
Neuromyelitis optica
reportedly with prolonged hospitalization for 4.5 years at [facility] at time of diagnosis, followed by 1 year in rehab
Peripheral neuropathy
HLD
PAF
PE s/p IVC filter
Chronic OAC with eliquis
Asthma
MCKENZIE
Obesity
History of gastric sleeve
History of appendectomy
History of L salpingo-oophorectomy
History cholecystostomy tube with plans for eventual cholecystectomy
Echocardiogram 05/09/2024: EF 66%, mild LVH, normal RV, normal atria, no significant valve abnormality
Plan:
She appears stable from a cardiac standpoint. Her troponin remains undetectable. Her echocardiogram was essentially normal, with only mild LVH.
Heart rhythm seems well-controlled with the addition of metoprolol. She states that she feels better with this and is no longer feeling her heart race.
Will change metoprolol tartrate from 25 every 6 to metoprolol succinate 50 mg twice daily
She is now on a statin, given her diabetes and hypercholesterolemia.
Can stop aspirin.
We will arrange for an outpatient sestamibi study and may consider a monitor.
.
Progress Note - Dye Maker
Subjective
Date of Service: May 11, 2024:
PMH/PSH/SH/FH: Reviewed
Allergies: None to medications
Outpatient meds: Reviewed
Current meds: aspirin 81 mg a day, Pulmicort, insulin, metoprolol tartrate 25 every 6, rosuvastatin 10 mg a day
ROS: Negative except as above
121/75, pulse 78 respiratory 20, afebrile, sleeping in bed, head neck exam unremarkable, lungs clear, regular rate and rhythm without murmurs, abdomen obese, extremities without clubbing cyanosis or edema
Glucose today 386
Objective
Labs:
05/09/24 09:15
05/11/24 01:37 EST
Labs
Hgb 12.1 g/dL (12.0-16.0) 05/09/24 09:15
Hct 37.0 % (37.0-47.0) 05/09/24 09:15
Plt Count 270 10^3/uL (130-400) 05/09/24 09:15
Sodium 137 mmol/L (135-145) 05/10/24 03:40
Potassium 4.2 mmol/L (3.5-5.1) 05/10/24 03:40
BUN 14 mg/dl (7-17) 05/10/24 03:40
Creatinine 0.6 mg/dL (0.6-1.0) 05/10/24 03:40
Glucose 386 mg/dl (70-99) H 05/11/24 01:37 EST
Troponins
05/09/24 05/09/24 05/09/24
09:15 09:15 14:00
Troponin I Cancelled < 0.012 < 0.012
05/09/24 05/09/24 05/09/24
16:39 20:02 22:39
Troponin I Cancelled < 0.012 Cancelled
Vital Signs and I&O:
Vital Signs
Temp Pulse Resp BP Pulse Ox
37.0 C 78 20 121/75 98
05/11/24 12:16 05/11/24 07:54 05/11/24 12:16 05/11/24 07:27 05/11/24 12:16
Vital Signs
Temp Pulse Resp BP Pulse Ox
37.0 C 78 20 121/75 98
05/11/24 12:16 05/11/24 07:54 05/11/24 12:16 05/11/24 07:27 05/11/24 12:16
Physical Exam
Physical Exam
See above
[2024-05-11 12:40] LABS: Glucose - Point of Care 206 mg/dl (70-99)
[2024-05-11] MEDS: NOVOLOG FLEXPEN-LOW RESISTANCE 2 UNITS SC (12:59)
--- NOTE | 2024-05-11 16:07 | PTCARENOTE ---
05/11/24 1400 Received patient in bed resting comfortably. Pt had no complaints of chest pain, shortness of breath or palpitations. Pt on monitor worker NSR, Afebrile VSS. Pt is AAo x3. Pt ambulated to bathroom w/rolling walker. Insulin w/meals was
increased from 15 units to 18 units-sugars more controlled.
[2024-05-11] MEDS: NEURONTIN PO (16:42)
[2024-05-11 17:00] LABS: Glucose - Point of Care 342 mg/dl (70-99)
[2024-05-11] MEDS: CRESTOR 10 MG PO (17:42)
[2024-05-11] MEDS: NOVOLOG FLEXPEN-LOW RESISTANCE 4 UNITS SC (17:42)
[2024-05-11] MEDS: TOPROL XL 50 MG PO (20:08)
[2024-05-11] MEDS: ATROVENT NEBULES INH (20:12)
[2024-05-11] MEDS: PULMICORT INH (20:12)
--- NOTE | 2024-05-11 20:22 | PTCARENOTE ---
Received patient at change of shift. Patient awake, alert, and oriented sitting in bed. BP 120/62, NSR 86-79, 98% on room air. No c/o of pain. Discussed plan of care for the night. Patient verbalized understanding. Call hillman within reach.
[2024-05-11 22:08] LABS: Glucose - Point of Care 278 mg/dl (70-99)
[2024-05-11] MEDS: LANTUS 0.4 UNITS SC (22:10)
[2024-05-11] MEDS: BENADRYL 50 MG PO (22:10)
--- NOTE | 2024-05-12 | RESPNOTE ---
Attempt made by respiratory to place CPAP as ordered for HS use. PT refused and stated that if she changed her mind that she would alert RN to call us for placement.
[2024-05-12 01:02] VITALS: BP 113/65
--- NOTE | 2024-05-12 02:30 | PTCARENOTE ---
Nurse noticed patient sitting up in bed. Went in to evaluate patient-- patient c/o leg pain. RN offered her PRN Tylenol-- patient denied-- 'it won't help me. I take 30 mg of oxy at home. Who is the night doctor?' Reached out to KALLI [place].
STAT order placed for Baclofen. RN informed patient about the baclofen order and patient refused medication 'That's a muscle relaxer. It's not going to help my pain.' RN offered the Tylenol, again, and patient refused. Patient agreed to notify RN if
mind changed. Call hillman within reach.
[2024-05-12 05:08] VITALS: BP 137/82
--- NOTE | 2024-05-12 07:17 | PTCARENOTE ---
Pt received from outgoing RN, pt resting in bed, vss, RA, Cpap currently off, tele NSR, ac/hs bs, personal belongings next to pt, call hillman in reach, potential dc today home.
[2024-05-12 07:37] VITALS: BP 128/81
[2024-05-12 07:39] LABS: Glucose - Point of Care 350 mg/dl (70-99)
[2024-05-12] MEDS: NOVOLOG FLEXPEN-LOW RESISTANCE 5 UNITS SC (09:17)
[2024-05-12] MEDS: DELTASONE 10 MG PO (09:18)
[2024-05-12] MEDS: NOVOLOG FLEXPEN 18 UNITS SC ×3 (09:18→16:24)
[2024-05-12] MEDS: ELIQUIS 5 MG PO (09:18)
[2024-05-12] MEDS: VITAMIN D3 (cholecalciferol) 25 MCG PO (09:18)
[2024-05-12] MEDS: FEOSOL 325 MG PO (09:19)
[2024-05-12] MEDS: PROTONIX 40 MG PO (09:19)
[2024-05-12] MEDS: TOPROL XL 50 MG PO (09:19)
[2024-05-12] MEDS: AUGMENTIN 875 MG/125 MG 1 TABLET PO ×2 (09:19→16:28)
[2024-05-12] MEDS: ORETIC 12.5 MG PO (09:19)
[2024-05-12] MEDS: REFRESH EYE DROPS (PF) 1 DROPS BOTH EYES (09:19)
[2024-05-12] MEDS: LIORESAL 10 MG PO (09:19)
[2024-05-12] MEDS: NEURONTIN PO ×2 (09:21→16:24)
[2024-05-12] MEDS: PULMICORT 0.5 MG INH (09:55)
[2024-05-12] MEDS: ATROVENT NEBULES 0.5 MG INH (09:55)
[2024-05-12 12:10] LABS: Glucose - Point of Care 252 mg/dl (70-99)
[2024-05-12 12:11] VITALS: BP 131/87
--- NOTE | 2024-05-12 12:18 | PTCARENOTE ---
reassessment unchanged from previous, vss, ra, nsr, pending Dced to home today.
--- NOTE | 2024-05-12 12:20 | W.PN.CARDCBS ---
Addendum entered and electronically signed by Sarkis Gentile MD 05/12/24 14:50:
Attending addendum: Patient seen and examined. She is scheduled for outpatient PET CT scan. Serially undetectable troponin. She was just started on statin. Needs good control of sugars. HgbA1c of 11%
Original Note:
Today's Communication / Plan
-
7 day CAM monitor to be applied prior to d/c
Outpatient PET stress test to be performed after CAM monitoring period and the cardiology office will call patient to schedule.
Impression / Plan
-
Primary Telesales Professional: [facility]
Assessment:
Presentation with CP
Serially undetectable Troponin
Strep throat, antibiotics course not yet completed at time of asmission
Fall 05/07/24
DM2, poorly controlled with hyperglycemia
HTN, poorly controlled
Neuromyelitis optica
reportedly with prolonged hospitalization for 4.5 years at [facility] at time of diagnosis, followed by 1 year in rehab
Peripheral neuropathy
HLD
PAF
PE s/p IVC filter
Chronic OAC with Eliquis
Asthma
MCKENZIE
Obesity
History of gastric sleeve
History of appendectomy
History of L salpingo-oophorectomy
History cholecystostomy tube with plans for eventual cholecystectomy
Echo 05/09/2024: EF 66%, mild LVH, normal RV, normal atria, no significant valve abnormality
Plan:
-No recurrence of chest pain and Troponin serially undetectable.
-Will schedule outpatient PET stress test that can be completed once outpatient monitor is done in about a week.
-Will also arrange for an outpatient 7 day CAM monitor for palpitations. Tele reviewed by me 05/12/24 and no arrhythmia seen.
-New to Toprol XL 50 mg BID this admission
-New to rosuvastatin 10 mg daily. LDL 175
-Outpatient dose of aspirin stopped. Outpatient dose of Eliquis 5 mg BID (age 49, Cre 0.6, wt 109.1 kg)
-Patient stable for d/c to home from cardiac standpoint
Progress Note - Telesales Professional
Subjective
Date of Service: May 12, 2024
No recurrence of chest pain
Objective
Labs:
05/09/24 09:15
05/11/24 01:37 EST
Labs
Hgb 12.1 g/dL (12.0-16.0) 05/09/24 09:15
Hct 37.0 % (37.0-47.0) 05/09/24 09:15
Plt Count 270 10^3/uL (130-400) 05/09/24 09:15
Sodium 137 mmol/L (135-145) 05/10/24 03:40
Potassium 4.2 mmol/L (3.5-5.1) 05/10/24 03:40
BUN 14 mg/dl (7-17) 05/10/24 03:40
Creatinine 0.6 mg/dL (0.6-1.0) 05/10/24 03:40
Glucose 386 mg/dl (70-99) H 05/11/24 01:37 EST
Troponins
05/09/24 05/09/24 05/09/24
14:00 16:39 20:02
Troponin I < 0.012 Cancelled < 0.012
05/09/24
22:39
Troponin I Cancelled
Vital Signs and I&O:
Vital Signs
Temp Pulse Resp BP Pulse Ox
98.3 F 87 16 131/87 97
05/12/24 12:12 05/12/24 12:12 05/12/24 12:12 05/12/24 12:11 05/12/24 12:12
Vital Signs
Temp Pulse Resp BP Pulse Ox
98.3 F 87 16 131/87 97
05/12/24 12:12 05/12/24 12:12 05/12/24 12:12 05/12/24 12:11 05/12/24 12:12
Physical Exam
Physical Exam
GEN: AAOx3
HEENT: MMM
LUNGS: No audible wheeze
CV: SR on tele
ABD: obese
EXT: No edema B/L LE
NEURO: Gross non-focal
SKIN: No rash
[2024-05-12] MEDS: NOVOLOG FLEXPEN-LOW RESISTANCE 3 UNITS SC (12:52)
--- NOTE | 2024-05-12 13:50 | W.PN.HOSP.TC ---
Today's Communication/Plan
-
Toprol
7 day CAM monitor to be applied prior to d/c
Outpatient PET stress test to be performed after CAM monitoring period and the cardiology office will call patient to schedule.
complete 7 day course of abx for already initiated treatment of pharyngitis
f/u pcp, cardiology, and NMO physician outpatient
Assessment / Plan
Assessment / Plan
Gen-awake, oriented, NAD, morbid obesity
HEENT-NC, AT, anicteric, clear oral mm
Neck-supple
CV-reg, no M, +S1/S2
Lungs-clear B/L
Abd-soft, NT, ND
Ext-no edema
Musculoskeletal-no cyanosis, clubbing
Skin-warm and dry
Neuro-grossly non-focal
Psych-calm, cooperative
Chest pain -unclear if anginal equivalent versus other etiology. Troponins negative so far. Cardiology following. Metoprolol initiated. Clinically doubt pulmonary embolism. LVEF 66% on echocardiogram without regional wall motion abnormalities,
normal RV, no significant valvular disease. Admission chest x-ray normal. Cardiology recommending outpatient evaluation. Outpatient PET stress test to be performed after CAM monitoring period and the cardiology office will call patient to
schedule. 7 day CAM monitor to be applied prior to d/c
DM2 with hyperglycemia -no evidence of DKA. Hemoglobin A1c 11.6%. Glucose 135 this morning. Steroid-induced hyperglycemia contributing. Continue Lantus 40 units at bedtime, increase NovoLog to 12 units AC. Patient asking for regular diet but I
explained to her that a regular diet will worsen her diabetes control. Recommend minimizing meat intake, focusing more on fruits and vegetables and high-fiber diet. Needs endocrine f/u
Neuromyelitis optica -on monthly Enspryng injections subQ, next dose due 05/15/24. Her neurologist is located in [place].
She is on a slow prednisone taper, was on 20 mg daily for the past month. She requests to go down to 10 mg daily starting today. Prednisone is for both her asthma as well as NMO.
Strep pharyngitis -subacute. Continue course of amoxicillin.
Paroxysmal atrial fibrillation -continue Eliquis.
Moderate persistent asthma/COPD without exacerbation -continue inhalers.
Essential hypertension -stable.
History of VTE -2016. IVC filter placed and still intact. Continue Eliquis.
MCKENZIE -resume CPAP at bedtime.
Morbid obesity due to excess calories
Full code
More than 30 minutes spent in discharge including
Final examination of the patient
Summarizing hospital stay
Instructions for continuing care to all relevant caregivers
Preparation of discharge records, prescriptions, and referral forms
Total time spent (35 in minutes):
Anticipated Discharge: Today
Subjective/Interval History
-
Date of Service: May 12, 2024
no acute events, no chest pain
Objective Data
-
Vital Signs:
Vital Signs
Temp Pulse Resp BP Pulse Ox
98.3 F 87 16 131/87 97
05/12/24 12:12 05/12/24 12:12 05/12/24 12:12 05/12/24 12:11 05/12/24 12:12
Review of Systems
-
History Source: Patient
All other systems: Not reviewed unless documented
Data Reviewed
-
Labs: Labs Reviewed by me
--- NOTE | 2024-05-12 13:54 | W.DS.TRANS ---
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
-
Discharge Instructions:
Discharge Diagnosis/Procedures Chest pain, uncontrolled diabetes
Diet Low Fat,Low Cholesterol,Diabetic, Carb
Controlled
Activity As tolerated
Driving Restrictions No driving
Bathing Restrictions None
Others Tests A 7 day heart monitor will be placed prior to
leaving the hospital, when the testing period is
done you can remove the monitor and place it in
the postage-paid envelope/box and drop in the
mail box to be delivered back to the cardiology
office. The cardiology office will call you to
schedule a PET stress test in the next couple of
weeks.
Instructions:
Stand-Alone Forms:
Changes to Home Medications: Yes
Discharge Medications:
DC Medications w/original date entered in [facility]
albuterol sulfate 2.5 mg/3 mL (0.083 %) solution for nebulization 2.5 mg inhalation R Q4HPRN PRN sob 05/09/24
apixaban 5 mg tablet (Eliquis) 5 mg PO BID Blood Clot Prevention/Tx 05/09/24
baclofen 10 mg tablet 10 mg PO BID Skeletal Muscle Relaxant 05/09/24
budesonide-formoterol HFA 160 mcg-4.5 mcg/actuation aerosol inhaler (Symbicort) 2 inh inhalation R BID Lung/Breathing Issues 05/09/24
cholecalciferol (vitamin D3) 25 mcg (1,000 unit) tablet (Vitamin D3) 25 mcg PO DAILY Supplement 05/09/24
diphenhydramine HCl 50 mg capsule 50 mg PO HSPRN PRN sleep 05/09/24
ferrous sulfate 325 mg (65 mg iron) tablet 325 mg PO DAILY Supplement 05/09/24
gabapentin 300 mg capsule 900 mg PO TID Pain 05/09/24
hydrochlorothiazide 12.5 mg tablet 12.5 mg PO DAILY 05/09/24
ipratropium bromide 0.02 % solution for inhalation 0.5 mg inhalation R BID Lung/Breathing Issues 05/09/24
ondansetron 8 mg disintegrating tablet 8 mg PO [id number] PRN nausea 05/09/24
pantoprazole 40 mg tablet,delayed release (Protonix) 40 mg PO DAILY GERD 05/09/24
peg 400-propylene glycol (PF) 0.4 %-0.3 % eye drops in a dropperette (Systane (PF)) 1 drp BOTH EYES BID Eye Condition 05/09/24
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
prednisone 10 mg tablet 10 mg PO DAILY #30 tabs 05/11/24
rosuvastatin 10 mg tablet 10 mg PO QPM #30 tabs 05/11/24
amoxicillin 875 mg-potassium clavulanate 125 mg tablet 1 tab PO Q12H 4 days #8 tabs 05/12/24
insulin glargine 100 unit/mL subcutaneous solution 40 unit (0.4 mL) SC HS Diabetes #0 mL 05/12/24
insulin lispro 100 unit/mL subcutaneous pen 15 unit (0.15 mL) SC AC Diabetes #0 mL 05/12/24
metoprolol succinate 50 mg tablet,extended release 24 hr 50 mg PO BID palpitations #60 tabs 05/12/24
Home Medication Changes
prednisone 10 mg tablet 10 mg PO DAILY #30 tabs 05/11/24
rosuvastatin 10 mg tablet 10 mg PO QPM #30 tabs 05/11/24
amoxicillin 875 mg-potassium clavulanate 125 mg tablet 1 tab PO Q12H 4 days #8 tabs 05/12/24
insulin glargine 100 unit/mL subcutaneous solution 40 unit (0.4 mL) SC HS Diabetes #0 mL 05/12/24
insulin lispro 100 unit/mL subcutaneous pen 15 unit (0.15 mL) SC AC Diabetes #0 mL 05/12/24
metoprolol succinate 50 mg tablet,extended release 24 hr 50 mg PO BID palpitations #60 tabs 05/12/24
Pending Results: No
[2024-05-12] MEDS: NOVOLOG FLEXPEN-LOW RESISTANCE 4 UNITS SC (16:24)
[2024-05-12 16:25] VITALS: BP 110/59
[2024-05-12 16:26] LABS: Glucose - Point of Care 304 mg/dl (70-99)
[2024-05-12] MEDS: CRESTOR 10 MG PO (16:28)
--- NOTE | 2024-05-12 17:19 | PTCARENOTE ---
Pt discharged home with spouse, dc instructions reviewed with pt at bedside, all questions and concerns addressed at the time of discussion. Pt will go home on CAM monitoring x1wk and will have f/u pet scan op. All belongings from the room return to
the pt. IV and tele pack dc. escorted by staff via wheelchair.
== END 2024-05-12 17:36 | disposition home or self-care (01) | DRG 638 ==
LOC: IVU 13:01
PROVIDERS: Physician Assistant; ADMITTING PHYSICIAN Hospitalist; ATTENDING PHYSICIAN Internal Medicine; CONSULT PHYSICIAN Internal Medicine Cardiovascular Disease; EMERGENCY PHYSICIAN Student in an Organized Health Care Education/Training Program
DX: E11.65 Type 2 diabetes mellitus with hyperglycemia (principal); G36.0 Neuromyelitis optica [Devic]; Z68.41 Body mass index [BMI] 40.0-44.9, adult; I48.0 Paroxysmal atrial fibrillation; E11.42 Type 2 diabetes mellitus with diabetic polyneuropathy; E66.01 Morbid (severe) obesity due to excess calories; I10 Essential (primary) hypertension; J44.89 Other specified chronic obstructive pulmonary disease; J45.40 Moderate persistent asthma, uncomplicated; Z95.828 Presence of other vascular implants and grafts; E78.5 Hyperlipidemia, unspecified; E86.0 Dehydration; G47.33 Obstructive sleep apnea (adult) (pediatric); J02.0 Streptococcal pharyngitis; R00.0 Tachycardia, unspecified; T38.0X5A Adverse effect of glucocorticoids and synthetic analogues, initial encounter; W19.XXXA Unspecified fall, initial encounter; Z79.01 Long term (current) use of anticoagulants; Z79.4 Long term (current) use of insulin; Z79.899 Other long term (current) drug therapy; Z86.711 Personal history of pulmonary embolism; Z86.718 Personal history of other venous thrombosis and embolism; Z87.891 Personal history of nicotine dependence; Z90.89 Acquired absence of other organs; Z90.721 Acquired absence of ovaries, unilateral; Z98.84 Bariatric surgery status; Z82.49 Family history of ischemic heart disease and other diseases of the circulatory system
CPT/HCPCS: 71046; 80048; 80053; 80061; 81003; 81015; 82010; 82805; 82947; 82962; 83036; 83690; 83880; 84132; 84443; 84484; 85027; 87070; 93005; 93306; 94640; 94660; 96374; 99285